=== PATIENT | male | born 1970 | race Caucasian/White ===

== ENCOUNTER → 2020-05-07 | Outpatient (CLI) | payer OTHER ==
[~2020-05-07] MED LIST: ASPIRIN CHEWABL81 MG PO; IBUPROFEN600 MG PO; ZOFRAN ODT 4 MG4 MG SL
[2020-05-07 16:18] LABS: HEMOGLOBIN 14.5 gm/dl (14.0-17.5); RED BLOOD COUNT 4.75 M/UL (4.20-5.50); WHITE BLOOD COUNT 6.6 K/UL (4.5-11.0)
[2020-05-07 16:44] LABS: BUN/CREATININE RATIO 14 (0-10)
== END ==
LOC: LAB 14:48
PROVIDERS: Orthopaedic Surgery
DX: R68.89 Other general symptoms and signs (principal); R79.1 Abnormal coagulation profile; R07.9 Chest pain, unspecified; R00.1 Bradycardia, unspecified
CPT/HCPCS: 36415; 80053; 85027; 85610; 93005

== ENCOUNTER 2020-07-16 12:51 | Emergency (ER) | payer OTHER ==
[2020-07-16 13:52] LABS: RED BLOOD COUNT 4.22 M/UL (4.20-5.50); WHITE BLOOD COUNT 4.9 K/UL (4.5-11.0)
[2020-07-16 14:13] LABS: BUN/CREATININE RATIO 18 (0-10)
== END 2020-07-16 17:40 | disposition home or self-care (01) ==
LOC: ER1 12:51
DX: R07.9 Chest pain, unspecified (principal); F17.210 Nicotine dependence, cigarettes, uncomplicated; Z79.899 Other long term (current) drug therapy
CPT/HCPCS: 71046; 80053; 82550; 82553; 83874; 84484; 85025; 93005; 99285

== ENCOUNTER 2020-07-26 14:45 | Emergency (ER) | payer OTHER | END 2020-07-26 15:32 | disposition left against medical advice (07) | LOC: ER1 14:45 | DX: Z53.21 Procedure and treatment not carried out due to patient leaving prior to being seen by health care provider (principal) ==

== ENCOUNTER 2021-05-13 21:49 | Emergency (ER) | payer OTHER | END 2021-05-14 00:16 | disposition home or self-care (01) | LOC: ER1 21:49 | PROVIDERS: Physician Assistant | DX: R06.02 Shortness of breath (principal); R07.9 Chest pain, unspecified; F17.210 Nicotine dependence, cigarettes, uncomplicated; Z20.822 Contact with and (suspected) exposure to COVID-19 | CPT/HCPCS: 0240U; 71045; 80307; 81001; 87086; 93005; 99285 ==

== ENCOUNTER 2021-06-20 15:43 | Emergency (ER) | payer OTHER | END 2021-06-20 16:58 | disposition home or self-care (01) | LOC: ER1 15:43 | DX: M25.561 Pain in right knee (principal); F17.200 Nicotine dependence, unspecified, uncomplicated; V49.40XA Driver injured in collision with unspecified motor vehicles in traffic accident, initial encounter; Y92.410 Unspecified street and highway as the place of occurrence of the external cause | CPT/HCPCS: 73564; 96372; 99283; J1100; J1885 ==

== ENCOUNTER → 2021-07-15 | Outpatient (CLI) | payer OTHER ==
[2021-07-15 15:14] LABS: HEMOGLOBIN 13.4 gm/dl (14.0-17.5); RED BLOOD COUNT 4.58 M/UL (4.20-5.50)
[2021-07-15 15:27] LABS: BUN/CREATININE RATIO 14 (0-10)
[2021-07-16 07:12] LABS: VITAMIN D, 25-HYDROXY 25.2 ng/mL (30.0-100.0)
[2021-07-16 15:13] LABS: TREPONEMA PALLIDUM ANTIBODIES Non Reactive (Non Reactive)
[2021-07-17 06:35] LABS: TESTOSTERONE, SERUM 518 ng/dL (264-916)
== END ==
LOC: LAB 13:59
PROVIDERS: Internal Medicine Cardiovascular Disease
DX: D51.3 Other dietary vitamin B12 deficiency anemia (principal)
CPT/HCPCS: 36415; 80053; 80061; 82607; 83036; 84153; 84402; 84403; 84443; 85027; 86780; G0480

== ENCOUNTER 2021-07-22 18:18 | Emergency (ER) | payer OTHER ==
[2021-07-22 18:47] LABS: HEMOGLOBIN 14.7 gm/dl (14.0-17.5); RED BLOOD COUNT 4.8 M/UL (4.20-5.50); WHITE BLOOD COUNT 7.5 K/UL (4.5-11.0)
[2021-07-22 19:16] LABS: BUN/CREATININE RATIO 14 (0-10)
== END 2021-07-23 00:29 | disposition left against medical advice (07) ==
LOC: ER1 18:18
PROVIDERS: Emergency Medicine
DX: R10.9 Unspecified abdominal pain (principal); R53.1 Weakness; F17.210 Nicotine dependence, cigarettes, uncomplicated
CPT/HCPCS: 80053; 81001; 83690; 85025; 99281